=== PATIENT | female | born 1990 | race American Indian/Alaskan Native ===

== ENCOUNTER 2016-12-09 00:36 | Emergency (ER) | payer SELFPAY ==
[2016-12-09 01:44] VITALS: BP 128/83
[2016-12-09 02:32] LABS: Basophils % (Auto) 0.6 % (0.0-1.8); Eosinophils % (Auto) 2.1 % (0.0-4.3); Hematocrit 38.1 % (30.3-42.9); Hemoglobin 12.6 gm/dl (10.1-14.3); Mean Corpuscular HGB Conc 33 % (30-34); Mean Corpuscular Hemoglobin 26 pg (28-32); Mean Corpuscular Volume 79 fl (79-97); Platelet Count 385 K/mm3 (140-440); Red Blood Count 4.85 M/mm3 (3.65-5.03); Red Cell Distribution Width 14.2 % (13.2-15.2); White Blood Count 7.3 K/mm3 (4.5-11.0)
[2016-12-09 02:56] LABS: Albumin 3.7 g/dL (3.9-5); Albumin/Globulin Ratio 1.4 %; Alkaline Phosphatase 61 units/L (35-129); Anion Gap 19 mmol/L; BUN/Creatinine Ratio 18.33; Bilirubin,Total 0.4 mg/dL (0.1-1.2); Blood Urea Nitrogen 11 mg/dL (7-17); Calcium 9.3 mg/dL (8.4-10.2); Carbon Dioxide 23 mmol/L (22-30); Chloride 105.1 mmol/L (98-107); Glucose 99 mg/dL (65-100); Lipase 28 units/L (13-60); Potassium 4.6 mmol/L (3.6-5.0); Sodium 142 mmol/L (137-145); Total Protein 6.4 g/dL (6.3-8.2)
[2016-12-09 03:07] LABS: Bilirubin,Urine NEG (Negative); Blood,Urine NEG (Negative); Ketones,Urine TR mg/dL (Negative); Leukocyte Esterase,Urine LG (Negative); Mucus,Urine 1+ /HPF; Nitrite,Urine NEG (Negative); Protein,Urine <15 mg/dL mg/dL (Negative); Urobilinogen,Urine < 2.0 mg/dL (<2.0)
[2016-12-09 04:34] LABS: Alanine Aminotransferase 6 units/L (7-56)
--- NOTE | 2016-12-13 00:45 | ED Elopement Review ---
ED Pt Elopement review - Results review Lab results: Laboratory Tests 12/09/16 12/09/16 12/09/16 02:14 02:14 02:28 WBC 7.3 RBC 4.85 Hgb 12.6 Hct 38.1 MCV 79 MCH 26 L MCHC 33 RDW 14.2 Plt Count 385 Lymph % (Auto) 42.1 H [place] % (Auto) 3.7 Eos % (Auto) 2.1 Baso % (Auto) 0.6 Lymph # 3.1 [place] # 0.3 Eos # 0.1 Baso # 0.0 Seg Neutrophils % 51.5 Seg Neutrophils # 3.7 Sodium 142 Potassium 4.6 Chloride 105.1 Carbon Dioxide 23 Anion Gap 19 BUN 11 Creatinine 0.6 L Estimated GFR > 60 BUN/Creatinine Ratio 18.33 Glucose 99 Calcium 9.3 Total Bilirubin 0.4 AST 11 ALT 6 L Alkaline Phosphatase 61 Total Protein 6.4 Albumin 3.7 L Albumin/Globulin Ratio 1.4 Lipase 28 Urine Color Yellow Urine Turbidity Clear Urine pH 6.0 Ur Specific [place] 1.027 Urine Protein <15 mg/dl Urine Glucose (UA) Neg Urine Ketones Tr Urine Blood Neg Urine Nitrite Neg Ur Reducing Substances Not Reportable Urine Bilirubin Neg Urine Ictotest Not Reportable Urine Urobilinogen < 2.0 Ur Leukocyte Esterase Lg Urine WBC (Auto) 58.0 H Urine RBC (Auto) 12.0 U Epithel Cells (Auto) 5.0 Urine Mucus 1+ Urine HCG, Qual Negative - Call Back decision Pt Call Back Decision: Pt to F/U with PMD (urine wbc inc could be uti, f/u pmd for recheck, may return if sx continue)
== END 2016-12-09 04:37 | disposition left against medical advice (07) ==
LOC: ED 00:36
DX: R10.9 Unspecified abdominal pain (principal); R53.83 Other fatigue; Z53.21 Procedure and treatment not carried out due to patient leaving prior to being seen by health care provider
CPT/HCPCS: 36415; 80053; 81001; 81025; 83690; 85025

== ENCOUNTER 2016-12-14 11:20 | Emergency (ER) | payer SELFPAY ==
--- NOTE | 2016-12-14 17:49 | Emergency Department Report ---
HPI - General Chief Complaint: Upper Respiratory Infection Time Seen by Provider: 12/14/16 17:40 - HPI HPI: Patient here reported and sore throat body aches headache cough and nausea or vomiting that started on December 06, 2016. She denies any abdominal or back pain. She denies any fever or chills. reports generalized body aches at 9 out of 10. She took utfm-wok-onsadiw cough and cold but it's not helping. She also reports that she is having . Denies any diarrhea. Denies any urinary burning frequency or urgency. Patient says she took a test was performed and is negative and she has bilateral tubal ligation. Last menstrual period was 12/01/2016. She reports that she noticed that she's easily bruised. Denies any history of clotting disorder. Patient given Motrin 800 mg in emergency room to help with body aches. She reports nasal congestion and cough and runny nose denies any chest pain or shortness of breath. ED Past Medical Hx - Past Medical History Previous Medical History?: No - Surgical History Past Surgical History?: Yes Additional Surgical History: c-sec x4 - Family History Family history: hypertension - Social History Smoking Status: Current Some Day Smoker Substance Use Type: None - Medications Home Medications: Home Medications Medication Instructions Recorded Confirmed Last Taken Type Cetirizine HCl [ZyrTEC] 10 mg PO QAM #14 capsule 12/14/16 Unknown Rx Fluticasone [Flonase] 1 spray NS QDAY #1 bottle 12/14/16 Unknown Rx Ibuprofen [Motrin] 600 mg PO Q8H PRN #15 tablet 12/14/16 Unknown Rx predniSONE [Deltasone] 20 mg PO QDAY #5 tab 12/14/16 Unknown Rx ED Review of Systems ROS: Stated complaint: SORE THROAT Other details as noted in HPI Comment: All other systems reviewed and negative Constitutional: denies: chills, fever ENT: throat pain, congestion. denies: ear pain Respiratory: cough. denies: orthopnea, shortness of breath, SOB with exertion, SOB at rest, stridor, wheezing Cardiovascular: denies: chest pain, palpitations, edema, syncope Gastrointestinal: nausea, vomiting. denies: abdominal pain, diarrhea, constipation Genitourinary: denies: urgency, dysuria, frequency, hematuria, discharge Musculoskeletal: arthralgia, myalgia. denies: back pain Skin: denies: rash Neurological: headache. denies: numbness, paresthesias, confusion, abnormal gait, vertigo Physical Exam - Physical Exam Vital Signs: Vital Signs 12/14/16 12/14/16 12:56 17:38 Temperature 98.3 F Pulse Rate 102 H 89 Respiratory 20 Rate Blood Pressure 123/77 Blood Pressure 116/78 [Right] O2 Sat by Pulse 100 Oximetry General: This is a 26-year-old female well-nourished well-developed in no acute distress. Physical Exam: Head: Normocephalic atraumatic Mouth: Moist, no pharyngeal exudate or erythema. Uvula is midline and oral airway is patent. No facial swelling. No peritonsillar abscesses. Nose: Congested with erythema to mucosa. Clear Drainage. Maxillary and frontal sinuses nontender to palpate Neck: Supple, no C-spine tenderness, no tracheal deviation. Nontender to palpate. no adenopathy Ears: Bilateral TMs congested without erythema. Bilateral EAC without any redness swelling or drainage. Abdomen: Soft, nontender to palpate in all quadrants, normal bowel sounds in all quadrant and negative CVA tenderness bilaterally. Eyes: Bilateral pupils equal and reactive to light, bilateral EOM intact. Bilateral sclera and conjunctiva without injection. Normal accommodation. No Lungs: Clear to auscultate bilaterally no rhonchi wheezes or rales. Normal work of breathing extremity; No CCE. +2 pulses. No neurovascular compromise Cardiovascular: S1-S2, regular rate rhythm. No murmurs. Skin: clean Dry and intact . Small bruised area noted to anterior chest wall. Nontender to palpate. Flat Psych: Normal mood and behavior. ED Course Vital Signs 12/14/16 12/14/16 12:56 17:38 Temperature 98.3 F Pulse Rate 102 H 89 Respiratory 20 Rate Blood Pressure 123/77 Blood Pressure 116/78 [Right] O2 Sat by Pulse 100 Oximetry - Reevaluation(s) Reevaluation #1: 12/14/16 19:15 Is given Motrin 800 mg in emergency room for sore throat and body aches. She patient with her headaches and sore throat. She was also challenged in the emergency room without juice and she tolerated 480 mg of Juice without any nausea or vomiting. ED Medical Decision Making - Lab Data Result diagrams: 12/14/16 18:04 Lab Results 12/14/16 12/14/16 Range/Units 18:04 18:04 WBC 8.0 (4.5-11.0) K/mm3 RBC 4.75 (3.65-5.03) M/mm3 Hgb 12.3 (10.1-14.3) gm/dl Hct 37.4 (30.3-42.9) % MCV 79 (79-97) fl MCH 26 L (28-32) pg MCHC 33 (30-34) % RDW 13.9 (13.2-15.2) % Plt Count 294 (140-440) K/mm3 Lymph % (Auto) 25.9 (13.4-35.0) % [place] % (Auto) 6.2 (0.0-7.3) % Eos % (Auto) 1.2 (0.0-4.3) % Baso % (Auto) 0.4 (0.0-1.8) % Lymph # 2.1 (1.2-5.4) K/mm3 [place] # 0.5 (0.0-0.8) K/mm3 Eos # 0.1 (0.0-0.4) K/mm3 Baso # 0.0 (0.0-0.1) K/mm3 Seg Neutrophils % 66.3 (40.0-70.0) % Seg Neutrophils # 5.3 (1.8-7.7) K/mm3 HCG, Qual Negative (Negative) - Medical Decision Making ED course: I discussed the patient that she has a viral upper respiratory tract infection with cough and I will put her on prednisone and Cytotec along with Flonase. Discussed with her that she can take Motrin or Tylenol to help with body aches. Patient states understanding of diagnosis and discharge instruction. Discharged home with prescription for Flonase, prednisone and Zyrtec. I also went over her lab work with her and told her that her CBC was within normal limits and she is not . I discussed with her that she will need to follow-up at her primary care physician's office and if she does not have one to follow-up at this outside [facility] Center for evaluation of bruising easily. She received Motrin 800 mg in emergency room and also challenged and tolerated well. Critical care attestation.: If time is entered above; I have spent that time in minutes in the direct care of this critically ill patient, excluding procedure time. ED Disposition Clinical Impression: Viral upper respiratory tract infection with cough, Bruising, Body aches Acute pharyngitis Qualifiers: Pharyngitis/tonsillitis etiology: unspecified etiology Qualified Code(s): J02.9 - Acute pharyngitis, unspecified Disposition: DISCHARGED TO HOME OR SELFCARE Is pt being admited?: No Does the pt Need Aspirin: No Condition: Stable Instructions: Acute Nausea and Vomiting (ED), Viral Syndrome (ED), Acute Cough (ED), Pharyngitis (ED), Acute Headache (ED) Additional Instructions: Please increase her fluid intake to 2-3 L of fluid per day. Take medication as prescribed. Follow-up with [facility] or your Primary care physician in 2-3 days. Prescriptions: Cetirizine HCl [ZyrTEC] 10 mg PO QAM #14 capsule Fluticasone [Flonase] 1 spray NS QDAY #1 bottle Ibuprofen [Motrin] 600 mg PO Q8H PRN #15 tablet PRN Reason: Pain predniSONE [Deltasone] 20 mg PO QDAY #5 tab Referrals: PRIMARY CARE, [Primary Care Provider] - 2-3 Days [facility] [Outside] - 2-3 Days Forms: Work/School Release Form(ED)
[2016-12-14] MEDS ORDERED: MOTRIN PO ONE (17:50)
[2016-12-14 18:28] LABS: Basophils % (Auto) 0.4 % (0.0-1.8); Eosinophils % (Auto) 1.2 % (0.0-4.3); Hematocrit 37.4 % (30.3-42.9); Hemoglobin 12.3 gm/dl (10.1-14.3); Mean Corpuscular HGB Conc 33 % (30-34); Mean Corpuscular Volume 79 fl (79-97); Platelet Count 294 K/mm3 (140-440); Red Blood Count 4.75 M/mm3 (3.65-5.03); Red Cell Distribution Width 13.9 % (13.2-15.2)
[2016-12-14 18:48] LABS: Mean Corpuscular Hemoglobin 26 pg (28-32)
[2016-12-14 19:45] VITALS: BP 119/77
== END 2016-12-14 19:23 | disposition home or self-care (01) ==
LOC: ED 11:20
DX: S20.219A Contusion of unspecified front wall of thorax, initial encounter (principal); J06.9 Acute upper respiratory infection, unspecified; J02.9 Acute pharyngitis, unspecified; M79.1 Myalgia; F17.200 Nicotine dependence, unspecified, uncomplicated; X58.XXXA Exposure to other specified factors, initial encounter; Y93.89 Activity, other specified; Y99.8 Other external cause status; Y92.89 Other specified places as the place of occurrence of the external cause
CPT/HCPCS: 36415; 84703; 85025; 99283

== ENCOUNTER 2017-03-09 04:29 | Emergency (ER) | payer SELFPAY ==
[2017-03-09 05:33] LABS: Bacteria,Urine 1+ /HPF (Negative); Bilirubin,Urine NEG (Negative); Blood,Urine NEG (Negative); Ketones,Urine 20 mg/dL (Negative); Leukocyte Esterase,Urine NEG (Negative); Mucus,Urine FEW /HPF; Nitrite,Urine NEG (Negative); Protein,Urine <15 mg/dL mg/dL (Negative); Urobilinogen,Urine < 2.0 mg/dL (<2.0)
[2017-03-09] MEDS ORDERED: ROCEPHIN IM ONE (09:00)
[2017-03-09] MEDS ORDERED: ZITHROMAX PO ONE (09:00)
[2017-03-09] MEDS ORDERED: TYLENOL #3 PO ONE (09:00)
[2017-03-09] MEDS ORDERED: XYLOCAINE 1% MPF 5 mL INFILTRATI ONE (09:00)
[2017-03-09] MEDS ORDERED: FLAGYL PO ONE (09:00)
--- NOTE | 2017-03-09 09:35 | Emergency Department Report ---
HPI - General Chief Complaint: Abdominal Pain Time Seen by Provider: 03/09/17 07:46 - HPI HPI: The patient is a 27 yo female who presents for evaluation of abdominal pain. The patient reports suprapubic abdominal pain for the past 2 weeks, constant for the past one day, cramping in quality, 6/10 in severity, and associated with foul-smelling vaginal discharge. She admits to upper to assess for intercourse within the past 3 months. The patient denies fever, chills, night sweats, diarrhea, blood in the stool, dark tarry stool, dysuria, hematuria, flank pain, inability to pass flatus. ED Past Medical Hx - Past Medical History Previous Medical History?: No - Surgical History Past Surgical History?: Yes Additional Surgical History: c-sec x4 - Social History Smoking Status: Current Every Day Smoker Substance Use Type: Alcohol - Medications Home Medications: Home Medications Medication Instructions Recorded Confirmed Last Taken Type Cetirizine HCl [ZyrTEC] 10 mg PO QAM #14 capsule 12/14/16 Unknown Rx Fluticasone [Flonase] 1 spray NS QDAY #1 bottle 12/14/16 Unknown Rx Ibuprofen [Motrin] 600 mg PO Q8H PRN #15 tablet 12/14/16 Unknown Rx predniSONE [Deltasone] 20 mg PO QDAY #5 tab 12/14/16 Unknown Rx Acetaminophen/Codeine [Tylenol #3] 1 tab PO Q6H PRN #14 tab 03/09/17 Unknown Rx metroNIDAZOLE [Flagyl] 500 mg PO Q12HR #14 tab 03/09/17 Unknown Rx ED Review of Systems ROS: Stated complaint: CRAMPING/ACHING/DISCHARGE Other details as noted in HPI Constitutional: denies: fever ENT: denies: throat or neck pain Respiratory: denies: cough, shortness of breath Cardiovascular: denies: chest pain Endocrine: denies unexplained weight loss or gain Gastrointestinal: reports abdominal pain Genitourinary: denies: dysuria Musculoskeletal: denies: leg swelling Skin: denies: rash Neurological: denies: headache Hematological/Lymphatic: denies: easy bleeding or easy bruising Psych: denies sadness or hopelessness Physical Exam - Physical Exam Vital Signs: Vital Signs 03/09/17 04:36 Temperature 98 F Pulse Rate 85 Respiratory 18 Rate Blood Pressure 126/88 Blood Pressure 126/88 [Right] O2 Sat by Pulse 100 Oximetry Physical Exam: General: well-nourished, well-developed, no acute distress Head: Normocephalic, atraumatic Eyes: normal sclera ENT: Mucous membranes are pink and moist Neck: trachea midline, neck supple, No neck stiffness, no cervical adenopathy Respiratory: Breath sounds equal bilaterally, no wheezing, rales, or rhonchi Cardio: S1 and S2 present, no murmurs, rubs, gallops, capillary refill is brisk Abdomen: Normoactive bowel sounds, soft abdomen, suprapubic tenderness to palpation present, no rigidity, no guarding or rebound tenderness Chest WALL/Back: No tenderness to palpation of the chest wall, no CVA tenderness with percussion Musc: No pitting edema Skin: No rash Neuro: no facial drooping, normal speech Psych: Normal affect ED Course Vital Signs 03/09/17 04:36 Temperature 98 F Pulse Rate 85 Respiratory 18 Rate Blood Pressure 126/88 Blood Pressure 126/88 [Right] O2 Sat by Pulse 100 Oximetry ED Medical Decision Making - Medical Decision Making The patient was seen and examined by myself. The patient is placed on a solid waste management engineer and continuous pulse ox. On initial evaluation, the patient was found to be in no distress. Evaluation orders were placed. The patient refuses pelvic exam. The patient is given a tablet of Tylenol 3 for pain. Lab results revealed negative test and normal urinalysis. The patient will be treated for suspected vaginitis. The patient is given IM Rocephin, by mouth azithromycin, and by mouth Flagyl. The patient was reevaluated and reported that their symptoms were markedly improved. The patient is stable for discharge with outpatient follow-up. The patient is given follow-up and return instructions. The patient expressed understanding and agreed with the plan. The patient is discharged in stable condition. Critical care attestation.: If time is entered above; I have spent that time in minutes in the direct care of this critically ill patient, excluding procedure time. ED Disposition Clinical Impression: Acute suprapubic pain, Pelvic pain, Acute vaginitis Disposition: TO HOME OR SELFCARE Is pt being admited?: No Does the pt Need Aspirin: No Condition: Stable Instructions: Abdominal Pain (ED), Vaginitis (ED), Bacterial Vaginosis (ED), Sexually Transmitted Diseases (ED), Safe Sex (ED) Prescriptions: Acetaminophen/Codeine [Tylenol #3] 1 tab PO Q6H PRN #14 tab PRN Reason: Pain metroNIDAZOLE [Flagyl] 500 mg PO Q12HR #14 tab Referrals: [facility] [Outside] - 3-5 Days BANDAR KATZ MD [Staff Physician] - 3-5 Days [facility] [Provider Group] - 3-5 Days Time of Disposition: 09:28
[2017-03-09 09:42] VITALS: BP 120/83
== END 2017-03-09 09:43 | disposition home or self-care (01) ==
LOC: ED 04:29
DX: N76.0 Acute vaginitis (principal); F17.200 Nicotine dependence, unspecified, uncomplicated
CPT/HCPCS: 81001; 81025; 96372; 99283; J0696

== ENCOUNTER 2017-06-08 14:00 | Emergency (ER) | payer SELFPAY | END 2017-06-08 14:15 | disposition left against medical advice (07) | LOC: ED 14:00 | DX: Z53.21 Procedure and treatment not carried out due to patient leaving prior to being seen by health care provider (principal) ==